=== PATIENT | male | born 1945 | race Caucasian/White ===

== ENCOUNTER 2016-08-02 11:51 | Observation (INO) | payer MEDICARE, OTHER ==
[~2016-08-02] VITALS: Ht 188 cm; Wt 132.0 kg
[~2016-08-02 11:51] MED LIST: ASPI81TA82 PO; LIPI10TA PO; LORA-475 PO; LOTE40TA PO; LYRI200C PO; MAGN250T13 PO; MECL-62 PO; MIRA0.25 PO; NEUR100C PO; TAB-TAB PO; VESI5TAB PO; ZOLP10TA3 PO
[2016-08-02 11:54] VITALS: BP 145/88; PULSE 82; RESP 16; TEMP 98.4; O2SAT 95
[2016-08-02] MEDS ORDERED: KETOROLAC TROMETHAMINE 60 MG/2 ML (IM) VIAL IM ONE (12:00)
[2016-08-02] MEDS ORDERED: NEOSTIGMINE 3 MG/3 ML SYR IV ONE (12:00)
[2016-08-02] MEDS ORDERED: ONDANSETRON HCL 4 MG/2 ML VIAL IV PUSH ONE (12:00)
[2016-08-02] MEDS ORDERED: PROPOFOL 200 MG/20 ML AMP IV ONE (12:00)
[2016-08-02] MEDS ORDERED: LORA2TAB7 PO (12:17)
[2016-08-02] MEDS ORDERED: ASPI1TAB69 PO (12:17)
[2016-08-02] MEDS ORDERED: VESI10TA PO (12:17)
[2016-08-02] MEDS ORDERED: MIRA50TA PO (12:17)
[2016-08-02] MEDS ORDERED: LOTE40TA PO (12:17)
[2016-08-02] MEDS ORDERED: MIRA0.25 PO (12:17)
[2016-08-02] MEDS ORDERED: LYRI200C PO (12:17)
[2016-08-02] MEDS ORDERED: VESI5TAB PO (12:17)
[2016-08-02] MEDS ORDERED: MAGN1TAB14 PO (12:17)
[2016-08-02] MEDS ORDERED: ZOLP10TA3 PO (12:17)
[2016-08-02] MEDS ORDERED: MULT1TAB84 PO (12:17)
[2016-08-02] MEDS ORDERED: GABA300C5 PO (12:17)
[2016-08-02] MEDS ORDERED: LIPI10TA PO (12:17)
[2016-08-02] MEDS ORDERED: SODIUM CHLOR 0.9% 1000 ML INJ 1,000 ML IV SCH (12:24)
[2016-08-02] MEDS ORDERED: SODIUM CHLORIDE 0.9% FLUSH 5 ML FLUSH IVF PRN ×2 (12:30→17:15)
[2016-08-02] MEDS ORDERED: ONDANSETRON HCL 4 MG/2 ML VIAL IVP ONE (12:30)
[2016-08-02] MEDS ORDERED: MORPHINE SULFATE 4 MG/ML INJ IV PUSH ONE ×2 (12:30→14:00)
[2016-08-02 12:58] LABS: AUTOMATED NEUTROPHIL # 8.1 TH/MM3 (1.8-7.7); BASOPHIL % 0.2 % (0.0-2.0); EOSINOPHIL # 0.3 TH/MM3 (0-0.4); EOSINOPHIL % 2.5 % (0.0-4.0); HEMATOCRIT 45.1 % (39.0-51.0); HEMO FLAGS DIFF FINAL; LYMPH % 6.9 % (9.0-44.0); LYMPHOCYTE # 0.7 TH/MM3 (1.0-4.8); MEAN CELL VOLUME 90.8 FL (80.0-100.0); MEAN CORPUSCULAR HEMOGLOBIN 31.2 PG (27.0-34.0); MEAN CORPUSCULAR HGB CONC 34.4 % (32.0-36.0); MONO % 9.9 % (0.0-8.0); NEUT % 80.5 % (16.0-70.0); PLATELET COUNT 174 TH/MM3 (150-450); RED BLOOD COUNT 4.97 MIL/MM3 (4.50-5.90); RED CELL DISTRIBUTION WIDTH 13.3 % (11.6-17.2); WHITE BLOOD COUNT 10.1 TH/MM3 (4.0-11.0)
[2016-08-02 13:00] LABS: BLOOD, URINE NEG (NEG); GLUCOSE,URINE NEG (NEG); KETONE, URINE NEG (NEG); NITRITE,URINE NEG (NEG); SQUAMOUS EPITHELIAL CELL URINE <1 /hpf (0-5); URINE COLOR COLORLESS (YELLW/STRAW)
[2016-08-02 13:01] VITALS: O2SAT 98
[2016-08-02 13:07] LABS: COMMENT (UR) CULT NOT INDICATED; CULTURE IF INDICATED CULT NOT INDICATED
[2016-08-02 13:11] VITALS: BP 100/63; PULSE 75; RESP 18; O2SAT 96
[2016-08-02 13:13] LABS: ALT (GPT) 32 U/L (12-78); ANION GAP 8 MEQ/L (5-15); AST (GOT) 16 U/L (15-37); BLOOD UREA NITROGEN 22 MG/DL (7-18); CHLORIDE 106 MEQ/L (98-107); GLOMERULAR FILTRATION RATE 70 ML/MIN (>89); POTASSIUM 4.3 MEQ/L (3.5-5.1); SODIUM (NA) 141 MEQ/L (136-145)
[2016-08-02 13:15] LABS: ALKALINE PHOSPHATASE 88 U/L (45-117); TOTAL BILIRUBIN ADULT 0.8 MG/DL (0.2-1.0)
--- NOTE | 2016-08-02 13:15 | RADRPT ---
EXAM DATE/TIME: 08/02/2016 12:46 [place] COMPARISON: CTA THORACIC ABDOMINAL AORTA W 3D RECON, September 11, 2015, 14:30. INDICATIONS : Right flank pain. ORAL CONTRAST: No oral contrast ingested. RADIATION DOSE: 8.51 CTDIvol (mGy) MEDICAL HISTORY : Renal calculi. SURGICAL HISTORY : None. ENCOUNTER: Initial ACUITY: 1 day PAIN SCALE: 4/10 LOCATION: Right flank TECHNIQUE: Volumetric scanning of the abdomen and pelvis was performed. Using automated exposure control and adjustment of the mA and/or kV according to patient size, radiation dose was kept as low as reasonably achievable to obtain optimal diagnostic quality images. FINDINGS: Coronary calcification is noted. Liver, gallbladder, pancreas, bilateral adrenal glands are normal. C alcified splenic granulomas are present. There is no hydronephrosis. Right upper pole renal cyst iden tified. Right mid to upper pole nonobstructing calculus measuring 5 mm on image 62. Right lower pole nonobstructing calculus measuring 2.9 mm on the 76. Urinary bladder unremarkable. There is sigmoid an d descending colonic diverticulosis without diverticulitis. There is a calcified appendicolith at the base of the appendix measuring 1.7 cm the appendix is dilated and there is mild periappendiceal fat stranding. This is characteristic of acute appendicitis. Calcified right hilar lymph nodes. Lung base s are clear. Degenerative changes of the spine are noted. CONCLUSION: 1. Acute appendicitis with appendicolith. 2. Nonobstructing renal calculi. 3. Right renal cyst. 4. Atherosclerosis. 5. Diverticulosis. Nico Coe MD on August 02, 2016 at 13:11 Board Certified Radiologist. This report was verified electronically.
[2016-08-02 13:21] LABS: APTT (PATIENT) 39.4 SEC (24.3-30.1); PROTHROMBIN TIME - PATIENT 10.9 SEC (9.8-11.6)
--- NOTE | 2016-08-02 13:26 | PD ---
HPI Chief Complaint: Abdominal Pain Time Seen by Provider: 12:20 Travel History International Travel<30 days: No Contact w/Intl Traveler<30days: No Traveled to known affect area: No History of Present Illness HPI Patient is a 70 year old male who presents to ER with c/o of right sided flank pain/abdominal pain. Patient reports that pain began last night and has been constant. Reports that he . Reports that he has hx of kidney stones in the past , reports that symptoms do feel a little different today. Denies hematuria, denies dysuria/urgency/freq. Denies fever/chills. Denies constipation/ diarrhea. reports that he still has an appendix. No other c/o PFSH Past Medical History AAA: Yes Cardiovascular Problems: Yes Diminished Hearing: No Hypertension: Yes Respiratory: Yes (sleep apnea) Triglycerides - High: Yes Tetanus Vaccination: < 5 Years Influenza Vaccination: Yes Past Surgical History Other Surgery: Yes (kidney stents, prostate ca) Social History Alcohol Use: No Tobacco Use: No Substance Use: No Allergies-Medications (Allergen,Severity, Reaction): Coded Allergies: Sulfa (Verified Allergy, Unknown, CHAN JOHN REACTION, 09/12/15) Reported Meds & Prescriptions Reported Meds & Active Scripts Active Reported Myrbetriq (Mirabegron) 50 Mg Tab 50 Mg PO DAILY Vesicare (Solifenacin) 10 Mg Tab 10 Mg PO DAILY Vesicare (Solifenacin) 5 Mg Tab 5 Mg PO DAILY Magnesium 400 Mg Tab 400 Mg PO DAILY Multivitamin Adults (Multiple Vitamins W/ Minerals) 1 Tab 1 Tab PO DAILY Lyrica (Pregabalin) 200 Mg Cap 200 Mg PO DAILY Lorazepam 2 Mg Tab 2 Mg PO HS PRN Mirapex (Pramipexole Dihydrochloride) 0.25 Mg Tab 0.25 Mg PO DAILY Lipitor (Atorvastatin Calcium) 10 Mg Tab 10 Mg PO HS Zolpidem (Zolpidem Tartrate) 10 Mg Tab 10 Mg PO HS PRN Gabapentin 300 Mg Cap 300 Mg PO BID Lotensin (Benazepril HCl) 40 Mg Tab 40 Mg PO DAILY Aspirin 81 Mg Tabdr 81 Mg PO DAILY Review of Systems General / Constitutional: No: Fever Eyes: No: Visual changes HENT: No: Headaches Cardiovascular: No: Chest Pain or Discomfort Respiratory: No: Shortness of Breath Gastrointestinal: Positive: Abdominal Pain Genitourinary: No: Urgency, Frequency, Dysuria Musculoskeletal: No: Pain Skin: No Rash Neurologic: No: Weakness Psychiatric: No: Depression Endocrine: No: Polydipsia Hematologic/Lymphatic: No: Easy Bruising Physical Exam Narrative GENERAL: mild distress SKIN: Warm and dry. HEAD: Atraumatic. Normocephalic. EYES: Pupils equal and round. No scleral icterus. No injection or drainage. ENT: No nasal bleeding or discharge. Mucous membranes pink and moist. NECK: Trachea midline. No JVD. CARDIOVASCULAR: Regular rate and rhythm. No murmur appreciated. RESPIRATORY: No accessory muscle use. Clear to auscultation. Breath sounds equal bilaterally. GASTROINTESTINAL: Abdomen soft, pt with right flank and right lower abdominal pain with guarding on exam MUSCULOSKELETAL: No obvious deformities. No clubbing. No cyanosis. No edema. NEUROLOGICAL: Awake and alert. No obvious cranial nerve deficits. Motor grossly within normal limits. Normal speech. PSYCHIATRIC: Appropriate mood and affect; insight and judgment normal. Data Data Last Documented VS Vital Signs Date Time Temp Pulse Resp B/P Pulse Ox O2 Delivery O2 Flow Rate FiO2 08/02/16 13:11 75 18 100/63 96 Room Air 08/02/16 11:54 98.4 Orders Complete Blood Count With Diff (08/02/16 12:24) Comprehensive Metabolic Panel (08/02/16 12:24) Lipase (08/02/16 12:24) Prothrombin Time / Inr (Pt) (08/02/16 12:24) Act Partial Throm Time (Ptt) (08/02/16 12:24) Urinalysis - C+S If Indicated (08/02/16 12:24) Ct Abd/Pel W/O Iv Contrast (08/02/16 12:24) Iv Access Insert/Monitor (08/02/16 12:24) Ecg Monitoring (08/02/16 12:24) Oximetry (08/02/16 12:24) Morphine Inj (Morphine Inj) (08/02/16 12:30) Ondansetron Inj (Zofran Inj) (08/02/16 12:30) Sodium Chlor 0.9% 1000 Ml Inj (Ns 1000 M (08/02/16 12:24) Sodium Chloride 0.9% Flush (Ns Flush) (08/02/16 12:30) Morphine Inj (Morphine Inj) (08/02/16 14:00) Piperacil-Tazo 3.375 Gm Premix (Zosyn 3. (08/02/16 14:15) Admit Order (Ed Use Only) (08/02/16 14:11) Labs Laboratory Tests Test 08/02/16 08/02/16 12:30 12:40 Urine Color COLORLESS Urine Turbidity CLEAR Urine pH 7.0 Urine Specific [place] 1.003 Urine Protein NEG mg/dL Urine Glucose (UA) NEG mg/dL Urine Ketones NEG mg/dL Urine Occult Blood NEG Urine Nitrite NEG Urine Bilirubin NEG Urine Urobilinogen LESS THAN 2.0 MG/DL Urine Leukocyte Esterase NEG Urine RBC LESS THAN 1 /hpf Urine WBC LESS THAN 1 /hpf Urine Squamous Epithelial <1 /hpf Cells Microscopic Urinalysis Comment CULT NOT INDICATED White Blood Count 10.1 TH/MM3 Red Blood Count 4.97 MIL/MM3 Hemoglobin 15.5 GM/DL Hematocrit 45.1 % Mean Corpuscular Volume 90.8 FL Mean Corpuscular Hemoglobin 31.2 PG Mean Corpuscular Hemoglobin 34.4 % Concent Red Cell Distribution Width 13.3 % Platelet Count 174 TH/MM3 Mean Platelet Volume 8.0 FL Neutrophils (%) (Auto) 80.5 % Lymphocytes (%) (Auto) 6.9 % Monocytes (%) (Auto) 9.9 % Eosinophils (%) (Auto) 2.5 % Basophils (%) (Auto) 0.2 % Neutrophils # (Auto) 8.1 TH/MM3 Lymphocytes # (Auto) 0.7 TH/MM3 Monocytes # (Auto) 1.0 TH/MM3 Eosinophils # (Auto) 0.3 TH/MM3 Basophils # (Auto) 0.0 TH/MM3 CBC Comment DIFF FINAL Differential Comment Prothrombin Time 10.9 SEC Prothromb Time International 1.0 RATIO Ratio Activated Partial 39.4 SEC Thromboplast Time Sodium Level 141 MEQ/L Potassium Level 4.3 MEQ/L Chloride Level 106 MEQ/L Carbon Dioxide Level 27.0 MEQ/L Anion Gap 8 MEQ/L Blood Urea Nitrogen 22 MG/DL Creatinine 1.05 MG/DL Estimat Glomerular Filtration 70 ML/MIN Rate Random Glucose 98 MG/DL Calcium Level 8.9 MG/DL Total Bilirubin 0.8 MG/DL Aspartate Amino Transf 16 U/L (AST/SGOT) Alanine Aminotransferase 32 U/L (ALT/SGPT) Alkaline Phosphatase 88 U/L Total Protein 7.1 GM/DL Albumin 3.7 GM/DL Lipase 72 U/L MDM Medical Decision Making Medical Screen Exam Complete: Yes Emergency Medical Condition: Yes Interpretation(s) Vital Signs Date Time Temp Pulse Resp B/P Pulse Ox O2 Delivery O2 Flow Rate FiO2 08/02/16 13:11 75 18 100/63 96 Room Air 08/02/16 13:01 98 Room Air 08/02/16 11:54 98.4 82 16 145/88 95 Laboratory Tests Test 08/02/16 08/02/16 12:30 12:40 Urine Color COLORLESS (YELLW/STRAW) Urine Turbidity CLEAR (CLEAR) Urine pH 7.0 (5.0-8.5) Urine Specific [place] 1.003 (1.002-1.035) Urine Protein NEG mg/dL (NEG-TRACE) Urine Glucose (UA) NEG mg/dL (NEG) Urine Ketones NEG mg/dL (NEG) Urine Occult Blood NEG (NEG) Urine Nitrite NEG (NEG) Urine Bilirubin NEG (NEG) Urine Urobilinogen LESS THAN 2.0 MG/DL (LESS THAN 2.0) Urine Leukocyte Esterase NEG (NEG) Urine RBC LESS THAN 1 /hpf (0-3) Urine WBC LESS THAN 1 /hpf (0-5) Urine Squamous Epithelial <1 /hpf (0-5) Cells Microscopic Urinalysis Comment CULT NOT INDICATED White Blood Count 10.1 TH/MM3 (4.0-11.0) Red Blood Count 4.97 MIL/MM3 (4.50-5.90) Hemoglobin 15.5 GM/DL (13.0-17.0) Hematocrit 45.1 % (39.0-51.0) Mean Corpuscular Volume 90.8 FL (80.0-100.0) Mean Corpuscular Hemoglobin 31.2 PG (27.0-34.0) Mean Corpuscular Hemoglobin 34.4 % Concent (32.0-36.0) Red Cell Distribution Width 13.3 % (11.6-17.2) Platelet Count 174 TH/MM3 (150-450) Mean Platelet Volume 8.0 FL (7.0-11.0) Neutrophils (%) (Auto) 80.5 % (16.0-70.0) Lymphocytes (%) (Auto) 6.9 % (9.0-44.0) Monocytes (%) (Auto) 9.9 % (0.0-8.0) Eosinophils (%) (Auto) 2.5 % (0.0-4.0) Basophils (%) (Auto) 0.2 % (0.0-2.0) Neutrophils # (Auto) 8.1 TH/MM3 (1.8-7.7) Lymphocytes # (Auto) 0.7 TH/MM3 (1.0-4.8) Monocytes # (Auto) 1.0 TH/MM3 (0-0.9) Eosinophils # (Auto) 0.3 TH/MM3 (0-0.4) Basophils # (Auto) 0.0 TH/MM3 (0-0.2) CBC Comment DIFF FINAL Differential Comment Sodium Level 141 MEQ/L (136-145) Potassium Level 4.3 MEQ/L (3.5-5.1) Chloride Level 106 MEQ/L (98-107) Carbon Dioxide Level 27.0 MEQ/L (21.0-32.0) Anion Gap 8 MEQ/L (5-15) Blood Urea Nitrogen 22 MG/DL (7-18) Creatinine 1.05 MG/DL (0.60-1.30) Estimat Glomerular Filtration 70 ML/MIN (>89) Rate Random Glucose 98 MG/DL (74-106) Calcium Level 8.9 MG/DL (8.5-10.1) Aspartate Amino Transf 16 U/L (15-37) (AST/SGOT) Alanine Aminotransferase 32 U/L (12-78) (ALT/SGPT) Albumin 3.7 GM/DL (3.4-5.0) Lipase 72 U/L (73-393) Last Impressions Abdomen/Pelvis CT 08/02/16 1224 Signed Impressions: Service Date/Time: Tuesday, August 02, 2016 12:46 - CONCLUSION: 1. Acute appendicitis with appendicolith. 2. Nonobstructing renal calculi. 3. Right renal cyst. 4. Atherosclerosis. 5. Diverticulosis. Nico Coe MD Differential Diagnosis kidney stone, pyelonephritis, appendicitis, colitis Narrative Course 70 year old male who presents to ER with c/o of right sided flank pain with right sided lower abdominal pain which began last night. reports that pain does radiate to groin. pt with hx of kidney stones in the past. discussed with pt need for ct of abd/pelvis for further eval of symptoms. Discussed possibility of possible appendicitis with patient as well as patient does have right lower quadrant abdominal pain with rebound and guarding. Patient reevaluated, with continued pain. Will medically medicate. Patient with acute appendicitis on CAT scan, with continued pain, no medicate. Reviewed case and results of studies with patient in detail. Discussed case with Dr. Ochoa, except patient to service. Reviewed all medications and reasons for medications patient and relayed this to Dr. Ochoa in detail. As requested by Dr. Ochoa: hx as per pt Patient is on aspirin for preventative care Patient is on gabapentin for foot pain Patient is on benzo for blood pressure control Patient is on zolpidem at bedtime for insomnia Patient is on Lipitor for cholesterol Patient is on Mirapex for restless leg syndrome Patient is on lorazepam for insomnia and or anxiety Patient is on Lyrica for left-sided nerve pain Patient is on multivitamins - nutritional supplement Patient is on Vesicare for prostate/urinary symptoms and management - history of prostate cancer Patient's primary care doctor is Dr. Preston steen in [place], [place] Diagnosis Primary Impression: Acute appendicitis Qualified Code: K35.2 - Acute appendicitis with generalized peritonitis Emely Saldivar DO Aug 02, 2016 13:26
[2016-08-02] MEDS ORDERED: PIPERACIL-TAZO 3.375 GM PREMIX 50 ML IV ONE (14:15)
[2016-08-02] MEDS ORDERED: HYDROmorphone HCL PF 1 MG/ML VIAL IV PUSH ONE (14:30)
[2016-08-02 14:50] VITALS: BP 132/76; PULSE 75; RESP 20; O2SAT 96
[2016-08-02] MEDS ORDERED: ACETAMINOPHEN 1000 MG/100 ML VIAL IV ONE (15:29)
[2016-08-02] MEDS ORDERED: MIDAZOLAM HCL 2 MG/2 ML VIAL ONE (15:29)
[2016-08-02] MEDS ORDERED: FAMOTIDINE 20 MG/2 ML VIAL ONE (15:30)
[2016-08-02] MEDS ORDERED: fentaNYL CITRATE 250 MCG/5 ML AMP ONE (15:30)
[2016-08-02] MEDS ORDERED: BUPIVACAINE/EPINEPHRINE 0.25% PF 30 ML VIAL ONE (15:41)
--- NOTE | 2016-08-02 17:13 | HHI.PR ---
cc: Raphael Ochoa MD Immediate Post Op Note Procedure Date: Aug 02, 2016 Pre Op Diagnosis: Acute appendicitis Post Op Diagnosis: Same, without perforation Surgeon: Raphael Ochoa Skip Load Driver(s): Analia Hanna CST Procedure: Laparoscopic appendectomy Complications: None Specimen(s) removed: Appendix to pathology Estimated blood loss: <20 ml Anesthesia: General Drains: None IVF (700 ml) Patient to: PACU Patient Condition: Good Date/Time of Procedure: SEE SURGICAL CARE RECORD Raphael Ochoa MD Aug 02, 2016 17:13
[2016-08-02] MEDS ORDERED: MORPHINE SULFATE 4 MG/ML INJ IV PUSH PRN ×2 (17:15→18:00)
[2016-08-02] MEDS ORDERED: NALOXONE HCL 0.4 MG/ML AMP IV PRN (17:15)
[2016-08-02] MEDS ORDERED: Post-op Orders (for Pharmacy) MISC XX ONE (17:15)
[2016-08-02] MEDS ORDERED: KETOROLAC TROMETHAMINE 30 MG/ML (IVP) VIAL IVP PRN (17:15)
[2016-08-02] MEDS ORDERED: ONDANSETRON HCL 4 MG/2 ML VIAL IV PRN (17:15)
[2016-08-02] MEDS ORDERED: ACETAMINOPHEN/HYDROcodone 325 MG/5 MG TAB PO PRN ×2 (17:15)
[2016-08-02] MEDS ORDERED: diphenhydrAMINE HCL 25 MG CAP PO PRN (17:15)
[2016-08-02] MEDS ORDERED: NORC5TAB PO (17:29)
[2016-08-02] MEDS ORDERED: ZOLPIDEM TARTRATE 10 MG TAB PO PRN (17:30)
[2016-08-02] MEDS ORDERED: LORazepam 2 MG TAB PO PRN (17:30)
--- NOTE | 2016-08-02 17:44 | MH ---
cc: KATELIN BROWN M.D. DATE OF ADMISSION: 08/02/2016 REASON FOR ADMISSION: Acute appendicitis. HISTORY OF PRESENT ILLNESS: The patient is a 70-year-old male who presented to the emergency room with a complaint of right-sided abdominal pain and flank pain that began last night. The patient reports that he had a history of kidney stones in the past and has had CT scan, which currently demonstrates acute appendicitis. He denies fevers, chills, nausea or vomiting. PAST MEDICAL HISTORY: His past medical history is significant for: 1. Abdominal aortic aneurysm. 2. History of hypertension. 3. Sleep apnea. 4. Hypertriglyceridemia. PAST SURGICAL HISTORY: 1. Robotic prostate surgery. 2. Kidney stents placed. SOCIAL HISTORY: He does not drink, smoke or use other medications. ALLERGIES: THE PATIENT HAS A SEVERE ALLERGY TO SULFA, WHICH CAUSES VAZQUEZ-ALVARO REACTION DOCUMENTED ON 09/12/2015. MEDICATIONS: 1. Mirabegron 50 milligrams daily. 2. VesiCARE 10 milligrams daily. 3. Magnesium 400 milligrams daily. 4. A multivitamin daily. 5. Lyrica 200 milligrams daily. 6. Lorazepam 2 milligrams p.o. at bedtime PRN. 7. Mirapex 0.25 milligrams daily. 8. Lipitor 10 milligrams at bedtime. 9. Zolpidem 10 milligrams p.o. at bedtime PRN. 10. Gabapentin 300 milligrams p.o. twice a day. 11. Lotensin 40 milligrams p.o. daily. 12. Aspirin 81 milligrams daily. REVIEW OF SYSTEMS: GENERAL: No fever. HEAD, EYES, EARS, NOSE, THROAT: No visual changes. No headaches. CARDIOVASCULAR: No chest pain or discomfort. RESPIRATORY: No wheezing or shortness of breath. GASTROINTESTINAL: Significant for abdominal pain on the right side. There is no periumbilical or left-sided pain. GENITOURINARY: Significant for previous history of prostatectomy but no current problems with hematuria, urgency, frequency or dysuria. MUSCULOSKELETAL: No history of back pain or problems. SKIN: No history of rash, ulcers or skin cancers. NEUROLOGIC: No weakness, dizziness. PSYCHIATRIC: No history of depression. ENDOCRINE: No history of polydipsia. HEMATOLOGIC: No history of easy bruising. PHYSICAL EXAMINATION: GENERAL: The physical exam reveals an obese male in mild distress. VITAL SIGNS: Blood pressure 132/76, pulse 75, respirations 20, and 96% sat on room air. HEAD, EYES, EARS, NOSE, THROAT: The sclerae are nonicteric. CHEST: Clear to auscultation. CARDIAC: Regular rate and rhythm without murmurs. ABDOMEN: Soft with tenderness located in the right mid-abdomen to the right lower quadrant. There is some guarding but no rebound. There is a well-healed supraumbilical scar and small trocar site scars (two on the right and at least one on the left) that are well-healed. There are no hernias noted. PULSES: Pulses are present. NEUROLOGICAL EXAMINATION: Cranial nerves II through XII are grossly intact. Sensory and motor exams are grossly intact. LABORATORY VALUES: WBCs of 10.1. Chemistries are essentially normal with slightly elevated BUN of 22 and creatinine of 1.0. Potassium is normal at 4.3. Glucose is normal at 98. IMAGING STUDIES: The imaging studies demonstrate acute appendicitis with an appendicolith and a nonobstructing renal calculi. There is atherosclerosis and diverticulosis. ASSESSMENT: Acute appendicitis with other medical problems. PLAN: Laparoscopic appendectomy, possible open appendectomy. I have discussed risks of the procedure with the patient including anesthetic risks such as stroke, myocardial infarction, pneumonia as well as surgical risks including but not limited to bleeding, infection, intestinal leakage, abscess formation requiring drainage and need for re-operation. I have discussed remedies, consequences, alternatives and convalescence; he vocalizes understanding and agrees to proceed. The patient is from [place] and his family doctor is [facility]. His urologist is [facility] as well. He indicates that his PSA was normal most recently and he is without evidence of disease. MD ILIA Siddiqui/NAKUL /5:24 PM /5:30 PM
[2016-08-02] MEDS: SODIUM CHLOR 0.9% 1000 ML INJ 1,000 ML IV SCH (17:50)
[2016-08-02 20:04] VITALS: BP 128/77; PULSE 80; RESP 20; TEMP 97.6; O2SAT 95
[2016-08-02] MEDS ORDERED: ATORVASTATIN 10 MG TAB PO SCH (21:00)
[2016-08-02] MEDS: SODIUM CHLORIDE 0.9% FLUSH 5 ML FLUSH IVF SCH (21:00)
[2016-08-02] MEDS: ceFAZolin 2 GM PREMIX 50 ML IV SCH (21:04)
[2016-08-02] MEDS: GABAPENTIN 300 MG CAP PO SCH (21:05)
[2016-08-02 23:49] VITALS: BP 122/74; PULSE 79; RESP 20; TEMP 97.2; O2SAT 95
[2016-08-03] MEDS: SODIUM CHLOR 0.9% 1000 ML INJ 1,000 ML IV SCH (03:56)
[2016-08-03] MEDS: ceFAZolin 2 GM PREMIX 50 ML IV SCH (03:57)
--- NOTE | 2016-08-03 06:42 | MP ---
cc: KATELIN OCHOA M.D. DATE OF SURGERY: 08/02/2016 PROCEDURE: Laparoscopic appendectomy. PREOPERATIVE DIAGNOSIS: Acute appendicitis. POSTOPERATIVE DIAGNOSIS: Acute appendicitis without perforation. ANESTHESIA: General endotracheal anesthesia SURGEON: Jairo Ochoa MD. ESTIMATED BLOOD LOSS: Less than 20 mL FLUIDS: 700 mL Crystalloid COMPLICATIONS: None. DRAINS: None. SPECIMEN: Appendix to pathology. FINDINGS: Acute appendicitis without significant gangrenous or perforated changes. PROCEDURE IN DETAIL: The patient was taken to the operating room and placed on the operating room table in supine position. After an adequate level of general endotracheal anesthesia was achieved, the abdomen was prepped and draped in the usual fashion. Time-out was taken confirming the correct patient, site and procedure to be performed. Skin and subcutaneous tissue was infiltrated with local anesthetic and an incision made through the umbilicus and carried through the fascia sharply. The peritoneal cavity was directly visualized. A 12 mm balloon trocar was inserted and the balloon inflated. The abdomen was insufflated. The patient was placed in Trendelenburg position. Two 5 mm trocars were placed with the first in the right lower quadrant and the second in the suprapubic region. Both entered the abdominal cavity under direct vision uneventfully. The bladder was seen to be somewhat full, however, the appendix was seen to be in the right mid abdomen, thus, the bladder did not interfere with the dissection. The appendix was grasped and lifted upward. Mesoappendix was divided with the harmonic scalpel and lateral peritoneal attachments were taken down with the harmonic scalpel. When this had been completed, the appendix was ligated with a 0 PDS Endoloop at the base below all inflammatory process. The appendix was divided with the harmonic scalpel 1 cm distal to this and placed into an EndoCatch bag. While observing via the right lower quadrant 5 millimeter trocar site, the appendix was removed via the umbilical port in the EndoCatch device. Irrigation was then utilized at the area of dissection as well as in the pelvis and along the right gutter. All irrigation was aspirated. No bleeding was noted from the dissection site. When this had been completed, insufflation was discontinued after observing the appendix stump and the area of dissection to be hemostatic. Insufflation was discontinued and the 5 millimeter trocars removed. No bleeding was noted from the trocar sites. The laparoscope and umbilical port were then removed. The fascia was closed in the umbilicus with 0 Vicryl suture in an interrupted buried and [id number] fashion. The remaining local was injected into the trocar sites. The skin was closed at each of the sites with 4-0 Vicryl in an interrupted buried fashion. All trocar sites were dressed with Steri-Strips. The patient was taken back to the Recovery Room, extubated and in stable condition. Sponge and needle counts were reported to be correct. MD ILIA Siddiqui/DAVONTE /8:03 PM /6:02 AM
[2016-08-03 08:00] VITALS: BP 103/65; PULSE 80; RESP 17; TEMP 98.8; O2SAT 93
[2016-08-03] MEDS ORDERED: MIRABEGRON 50 MG PO SCH (09:00)
[2016-08-03] MEDS ORDERED: NON-FORMULARY DRUG (Solifenacin (Vesicare) 10 MG) PO SCH (09:00)
[2016-08-03] MEDS ORDERED: MAGNESIUM OXIDE 400 MG TAB PO SCH (09:00)
[2016-08-03] MEDS ORDERED: MULTIVITAMINS/MINERALS THERAPEUTIC TAB PO SCH (09:00)
[2016-08-03] MEDS ORDERED: TOLTERODINE TARTRATE 2 MG CAP LA PO SCH (09:00)
[2016-08-03] MEDS ORDERED: LISINOPRIL 20 MG TAB PO SCH (09:00)
[2016-08-03] MEDS ORDERED: MAGNESIUM 400 MG PO SCH (09:00)
[2016-08-03] MEDS ORDERED: PREGABALIN 100 MG CAP PO SCH (09:00)
[2016-08-03] MEDS ORDERED: PRAMIPEXOLE DIHYDROCHLORIDE 0.25 MG TAB PO SCH (09:00)
[2016-08-03] MEDS: SODIUM CHLORIDE 0.9% FLUSH 5 ML FLUSH IVF SCH (09:12)
[2016-08-03] MEDS: GABAPENTIN 300 MG CAP PO SCH (09:12)
--- NOTE | 2016-08-03 09:43 | HHI.PR ---
Subjective Subjective Notes pain controlled Objective Vitals/I&O Vital Signs Date Time Temp Pulse Resp B/P Pulse Ox O2 Delivery O2 Flow Rate FiO2 08/03/16 08:00 98.8 80 17 103/65 93 08/02/16 18:00 Nasal Cannula 2 Labs Laboratory Tests Test 08/02/16 08/02/16 12:30 12:40 Urine Color COLORLESS Urine Turbidity CLEAR Urine pH 7.0 Urine Specific [place] 1.003 Urine Protein NEG Urine Glucose (UA) NEG Urine Ketones NEG Urine Occult Blood NEG Urine Nitrite NEG Urine Bilirubin NEG Urine Urobilinogen LESS THAN 2.0 Urine Leukocyte Esterase NEG Urine RBC LESS THAN 1 Urine WBC LESS THAN 1 Urine Squamous Epithelial <1 Cells Microscopic Urinalysis Comment CULT NOT INDICATED White Blood Count 10.1 Red Blood Count 4.97 Hemoglobin 15.5 Hematocrit 45.1 Mean Corpuscular Volume 90.8 Mean Corpuscular Hemoglobin 31.2 Mean Corpuscular Hemoglobin 34.4 Concent Red Cell Distribution Width 13.3 Platelet Count 174 Mean Platelet Volume 8.0 Neutrophils (%) (Auto) 80.5 Lymphocytes (%) (Auto) 6.9 Monocytes (%) (Auto) 9.9 Eosinophils (%) (Auto) 2.5 Basophils (%) (Auto) 0.2 Neutrophils # (Auto) 8.1 Lymphocytes # (Auto) 0.7 Monocytes # (Auto) 1.0 Eosinophils # (Auto) 0.3 Basophils # (Auto) 0.0 CBC Comment DIFF FINAL Differential Comment Prothrombin Time 10.9 Prothromb Time International 1.0 Ratio Activated Partial 39.4 Thromboplast Time Sodium Level 141 Potassium Level 4.3 Chloride Level 106 Carbon Dioxide Level 27.0 Anion Gap 8 Blood Urea Nitrogen 22 Creatinine 1.05 Estimat Glomerular Filtration 70 Rate Random Glucose 98 Calcium Level 8.9 Total Bilirubin 0.8 Aspartate Amino Transf 16 (AST/SGOT) Alanine Aminotransferase 32 (ALT/SGPT) Alkaline Phosphatase 88 Total Protein 7.1 Albumin 3.7 Lipase 72 Cardiovascular: Regular Lungs: Clear Abdomen: Non-distended, Post-op tenderness Extremities: Perfused A/P Assessment and Plan 70yo male s/p lap appendectomy or uncomplicated appendicitis, stable. - AF, VSS - DC home today if tolerates PO Davis Cervantes MD Aug 03, 2016 09:43
--- NOTE | 2016-08-03 13:26 | EKG ---
Date Performed: 08/02/2016 Time Performed: 14:24:00 PTAGE: 70 years EKG: Sinus rhythm Since previous tracing, no significant change noted NORMAL ECG PREVIOUS TRACING : 09/11/2015 12.18 DOCTOR: Shania Alcantara Interpretating Date/Time 08/03/2016 13:24:50
== END 2016-08-03 11:10 | disposition home or self-care (01) ==
LOC: NEPA 11:51 → NEDA 14:12 → N07B 18:21
PROVIDERS: ADMIT Surgery Trauma Surgery; ATTEND Surgery Trauma Surgery
DX: K35.80 Unspecified acute appendicitis (principal); I10 Essential (primary) hypertension; G47.30 Sleep apnea, unspecified; E78.1 Pure hyperglyceridemia
CPT/HCPCS: 00840; 44970; 74176; 80053; 81001; 83690; 85025; 85610; 85730; 88304; 93005; 96361; 96374; 96375; 96376; 99285; G0378; J0131; J0690; J1170; J1885; J2250; J2270; J2405; J2543; J2710; J3010; J7030